=== PATIENT | female | born 1930 | race Caucasian/White ===

== ENCOUNTER 2016-10-09 07:09 | Observation (INO) | payer MEDICARE, BC ==
[~2016-10-09] VITALS: Ht 157.5 cm; Wt 49.8 kg
--- NOTE | ~2016-10-09 | CO ---
Unit #: [id number] #: [id number] Patient: ELMA TIPTON [id number] [facility]. [place], [place] [address] [id number] I MR#: [id number] NAME: ELMA TIPTON ROOM: 573 Age: 86 Sex: F Admission Date: 10/09/2016 : 1930 Attending Physician: Victoriano Montilla M.D. CONSULTATION REPORT REASON FOR CONSULTATION Questionable atrial fibrillation and dizziness. HISTORY OF PRESENT ILLNESS This is an 86-year-old white female with a history of having known about a cath in 2004, nonobstructive CAD. Has an EF of 60% with moderate MR and AR with history of frequent PACs and Mobitz type 2 heart block found back in 2004 on a Holter monitor. She also takes Plavix and on aspirin for TIAs a few years back. She has hypertension and hyperlipidemia. She is active with Dr. Biju Hook. She reports she saw him this past May or June, was doing fine. She said she was doing fine up until last evening. During the night, she got up a couple of times and when she sat on the side of bed, she felt very weak and lightheaded. She says she attempted to try to go to the bathroom where she had to hold onto things, which was highly unusual for her. She says she just continued to feel that way, just very weak and lightheaded. She had 4 bouts of small amounts of diarrhea, which she also said that is unusual. She denies any nausea, vomiting, abdominal pain. She denies any chest pain; pain in her neck, bilateral jaws, shoulders, arms, or elbows. She called her daughter who was just worried about her symptoms and she called EMS and they brought her in for further evaluation and management. According to the patient, EMS did not discuss with her any hypotension or bradycardia that they had seen, no report of that from the staff. The patient does report that she does take her Lopressor. She does take metoprolol at bedtime, and she had taken everything yesterday, all of her medications. As mentioned, she is active with Dr. Biju Hook who she saw this past June and he said everything was stable. In the emergency room, the patient's blood pressure was 168/84, heart rate 70, respirations 16, temperature 97.3, O2 saturation was 99% on room air. Her EKG shows sinus rhythm, has frequent premature atrial complexes. She appears to have borderline first degree AV block. No acute ischemia. Initial cardiac enzymes are negative. Her potassium is 3.9, magnesium 2.1. BUN and creatinine stable. CBC is unremarkable. The patient was started on IV fluids. She has been admitted with dizziness and possibly atrial fibrillation, which was interpreted initially and Cardiology consult to assist with evaluation and management. PAST MEDICAL HISTORY 1. In 2004, per [place] web site, she had a cardiac cath which showed 20% luminal irregularities in the LAD, 40% stenosis in the RCA, 50% to 60% stenosis in the circumflex. 2. In 2013, a 2D echo showed LVEF 60% with moderate mitral regurgitation, Unit #: [id number] #: [id number] Patient: ELMA TIPTON mild tricuspid regurgitation and [id number] aortic regurgitation, mild pulmonic regurgitation. 3. History of frequent premature atrial contractions and history in 2004 of Mobitz type 2 heart block. 4. Questionable paroxysmal atrial fibrillation in the past. 5. History of transient ischemic attacks and mini strokes. He has been on Plavix and aspirin. 6. Degenerative joint disease, kyphosis, and chronic back and neck pain. 7. Hypertension. 8. Hyperlipidemia. 9. Nonsmoker. 10. Active with Dr. Biju Hook. PAST SURGICAL HISTORY 1. Partial hysterectomy. 2. Cataract surgery. HOME MEDICATIONS Boniva 150 mg p.o. monthly, metoprolol 50 mg in the morning and 25 mg at bedtime, atorvastatin 10 mg p.o. daily, Plavix 75 mg daily, lisinopril 30 mg p.o. daily, aspirin 81 mg daily. ALLERGIES No known drug allergies. SOCIAL HISTORY The patient lives in her apartment, ambulates without a cane or walker. She does not drive. Her daughter takes her to her appointments and to the grocery. She has been a lifelong nonsmoker. No alcohol or illicit drug abuse. FAMILY HISTORY Her mother at the age of 75 with a heart attack. Father of complications from Parkinson disease. She has older brother and younger brother, who both had coronary artery bypass grafting and several other siblings who are diabetics. REVIEW OF SYSTEMS See details in HPI. PHYSICAL EXAMINATION GENERAL: Ms. Cano is an 86-year-old white female, in no acute respiratory distress. She is awake, alert, and oriented and she answers all questions appropriately. VITAL SIGNS: Blood pressure currently 170/68, heart rate 60, respirations 18, temperature 97.3, O2 saturations 98% on room. NECK: Trachea midline. No thyromegaly or lymphadenopathy. Normal carotid upstrokes. No jugular venous distention. Heart: S1, S2, irregular to regular rate and rhythm. Soft systolic murmur over aortic region and left sternal border. LUNGS: Diminished, but clear. ABDOMEN: Soft, nontender. EXTREMITIES: Pedal pulses are palpable. No pedal edema. DIAGNOSTIC STUDIES LABORATORY RESULTS: Glucose is 117, BUN 26, creatinine 1.0, eGFR is 50.6. Sodium 142, potassium 3.9, chloride 108, CO2 of 25, calcium is 9.2, magnesium 2.1, total protein 7.1, albumin 4.2, bilirubin total 0.4, AST Unit #: [id number] #: [id number] Patient: ELMA TIPTON 22, ALT 15, alkaline phosphatase is 59. WBCs 6.0, hemoglobin 12.6, hematocrit 38.9, platelets is 221. Initial cardiac enzymes; CK-MB is less than 1.0 and troponin less than 0.05. Urinalysis shows 0.2 urobilinogen, otherwise unremarkable. IMAGING STUDIES: Chest x-ray, preliminary report shows nothing acute. No active disease. CARDIOVASCULAR STUDIES: EKG shows normal sinus rhythm with ventricular rate of 70 beats per minute, frequent premature atrial contractions. She does have a first-degree AV block, left axis deviation, poor R-wave progression. IMPRESSION 1. Dizziness, questionable etiology. 2. Diarrhea. 3. Questionable arrhythmias. 4. Frequent premature atrial contractions. 5. History of premature atrial contractions in the remote past, Mobitz type 2 heart block. 6. Nonobstructive coronary artery disease. Last cardiac cath in 2004. 7. Left ventricular ejection fraction of 50% with moderate mitral regurgitation, moderate aortic regurgitation, and mild pulmonic regurgitation and mild tricuspid regurgitation according to 2D echo of 2013. 8. History of transient ischemic attack and mini strokes, on Plavix and aspirin. 9. Kyphosis and chronic back and neck pain. 10. Hypertension. 11. Hyperlipidemia. 12. Active with Dr. Biju Hook. PLAN 1. Cardiology consult to assist with evaluation and management. 2. Dr. Villagran evaluated the EKG. It shows sinus rhythm with frequent premature atrial contractions. There was no atrial fibrillation at this point. 3. We will obtain a TSH, T3 and T4 and evaluate. 4. Obtain the latest records from Dr. Biju Hook, her cross tie maker from [place], and see if he has done a recent 2D echo. EKG obtained from [facility] shows sinus rhythm with frequent PACs. 5. The patient was given a dose of Antivert and she received normal saline bolus. Questionable etiology of dizziness could maybe possibly from the diarrhea or some dehydration. 6. Continue the patient on the beta-davie for now with parameters and also Plavix, aspirin and lisinopril. So far, her blood pressure is stable. We will monitor and make any changes if needed. 7. The patient will have SCDs for DVT prophylaxis. 8. Orthostatic vital signs b.i.d. and monitor. 9. Further recommendations pending per Dr. Villagran. Thank you very much for allowing us to assist in the care. Dictated by... Julio Correa/demarco Unit #: [id number] #: [id number] Patient: ELMA TIPTON TD: 10/10/2016 07:17 JOB #: [id number] CC: Tomi Sharma M.D. CONSULTATION REPORT Page 1 of 1 X Talya Key APRN CONSULTATION REPORT
--- NOTE | ~2016-10-09 | EKG ---
PATIENT: ELMA TIPTON UNIT #: [id number] Ventricular Rate: 70 BPM Atrial Rate: 70 BPM P-R Interval: 192 ms QRS Duration: 88 ms Q-T Interval: 436 ms QTC Calculation(Bezet): 470 ms P Griffin: 184 degrees Calculated R Griffin: -24 degrees Calculated T Griffin: 55 degrees Diagnosis Line: Normal sinus rhythm with 1st degree A-V block Diagnosis Line: Abnormal ECG Diagnosis Line: When compared with ECG of 09-OCT-2016 08:53, Diagnosis Line: (unconfirmed) Diagnosis Line: No significant change was found Diagnosis Line: Confirmed by DAMIAN BLAS MD ([id number]) on 10/10/2016 Diagnosis Line: 7:26:04 PM INTERPRETING MD: WAN VALIENTE
--- NOTE | ~2016-10-09 | CT71 ---
[facility] A Service of [facility] RADIOLOGY TEXT RESULTS PATIENT: ELMA TIPTON LOCATION: [facility] : 29 UNIT #: [id number] AGE: [address]: Victoriano Montilla MD SEX: F ORDER DR: [id number] [facility] [address] [facility]. [place], [place] [address] [id number] MR#: [id number] #: [id number] NAME: ELMA TIPTON : 1930 SEX: F STUDY DATE/TIME: 10/09/2016 11:37 UNIT: [facility] ROOM: [facility] STUDY DESCRIPTION: CT Head Wo Contrast Attending Physician: Sofiya Milner M.D. Ordering Physician: Mihai Garcia M.D. Primary Care Physician: Primary Care Physician No MEDICAL IMAGING REPORT This report is preliminary unless electronic signature is present EXAM Noncontrast head CT. HISTORY 86-year-old female, weakness and dizziness today, blurred vision, onset today. COMPARISON Head CT 11/20/[address] exam was performed with one or more of the following radiation dose reduction techniques: Automatic exposure control, adjustment of mA and/or kV according to patient size, and iterative reconstruction. Axial noncontrast imaging of the brain demonstrate a focal area of decreased attenuation within the left periventricular white matter compatible with an old infarct. This is unchanged from the 2016 study. No mass, mass effect or midline shift. Probable small left lacunar infarct. Extensive intracranial vascular calcifications are noted, particularly within the vertebral arteries bilaterally. Small left maxillary sinus retention cyst. Mastoids, skull base unremarkable. IMPRESSION 1. No definite acute intracranial abnormality identified. 2. Old left basal ganglia lacunar infarct and left periventricular white matter infarct. 3. Extensive intracranial atherosclerotic change particularly within the vertebral arteries bilaterally. Dictated by.Cristian Sbeastian M.D. [facility] A Service of [facility] RADIOLOGY TEXT RESULTS PATIENT: ELMA TIPTON LOCATION: [facility] 5705-24 : 29 UNIT #: [id number] AGE: [address]: Victoriano Montilla MD SEX: F ORDER DR: THIS IS AN ELECTRONICALLY VERIFIED REPORT Cordell Sebastian M.D. at 10/10/2016 9:02 AM Nitish TD: 10/09/2016 20:21 JOB #: [id number] MEDICAL IMAGING REPORT Page 1 of 1 COPY
--- NOTE | ~2016-10-09 | EKG ---
PATIENT: ELMA TIPTON UNIT #: [id number] Ventricular Rate: 70 BPM Atrial Rate: 74 BPM QRS Duration: 80 ms Q-T Interval: 424 ms QTC Calculation(Bezet): 457 ms Calculated R [place]: -30 degrees Calculated T [place]: 54 degrees Diagnosis Line: Sinus rhythm with frequent PACs Diagnosis Line: Left axis deviation Diagnosis Line: Abnormal ECG Diagnosis Line: When compared with ECG of 08-MAR-2014 09:24, Diagnosis Line: is no longer Diagnosis Line: Confirmed by OMAR HOLDEN MD ([id number]) on Diagnosis Line: 10/10/2016 3:44:59 PM INTERPRETING MD: RICHIE
--- NOTE | ~2016-10-09 | HP ---
Unit #: [id number] #: [id number] Patient: ELMA TIPTON [id number] [address] [address] [id number] E MR#: [id number] NAME: ELMA TIPTON ROOM: Age: 86 Sex: F Admission Date: 10/09/2016 : 1930 Attending Physician: Mihai Garcia M.D. HISTORY AND PHYSICAL CHIEF COMPLAINT Weakness and diarrhea. HISTORY OF PRESENT ILLNESS The patient is an 86-year-old female with a past medical history of hypertension, hyperlipidemia, TIA/CVA, atrial fibrillation, coronary artery disease, dysphagia, anemia, osteoporosis, and chronic back pain, who presented to the emergency department for evaluation of the above. The patient states that she was in her usual state of health until the morning of admission when she felt lightheaded. She states that around 4 a.m. this morning she felt "off balance." She states that she has had issues with intermittent dizziness for several years. She states that it is worse with position changes. She states that she feels "unsteady" on her feet. She also states that her legs are "weak." She denies any fever, no cough or cold symptoms, no chest pain, and no palpitations. She states that she did have left shoulder pain within the past week that lasted for about 24 hours but has resolved. She denies any vomiting or diarrhea. No change in her medications. No urinary symptoms. She denies actually passing out. In the emergency department, initial pulse and blood pressure were 70 and 168/84, respectively. EKG shows atrial fibrillation with a rate of 70 beats per minute. She was given 500 mL of normal saline, as well as 25 mg of Antivert in the emergency department. She is being admitted to [facility] for evaluation and further treatment. PAST MEDICAL HISTORY 1. Admission to [facility] March 06-2013, for acute kidney injury and urinary tract infection. 2. Atrial fibrillation, not on chronic anticoagulation. Per the Discharge Summary from March 11, 2014, the patient has a diagnosis of atrial fibrillation. She is not on chronic anticoagulation. She was seen by Cardiology during that admission, and there was not any adjustment in her medications. Again, per record review, there is an EKG from January 22, 2012, that shows atrial fibrillation with a rate of 71 beats per minute. The patient sees Dr. Hook. 3. History of dysphagia. The patient has refused EGD in the past. 4. Chronic back pain. 5. Hypertension. 6. Hyperlipidemia. 7. History of TIA/CVA. 8. Osteoporosis. 9. Anemia. Unit #: [id number] #: [id number] Patient: ELMA TIPTON 10. Nonobstructive coronary artery disease followed by Dr. Hook. 11. Echocardiogram on March 07, 2014, showed an ejection fraction of 60% with moderate mitral regurgitation, mild tricuspid regurgitation, mild to moderate aortic regurgitation, and mild pulmonic valvular regurgitation. Right ventricular systolic pressure was normal. PAST SURGICAL HISTORY 1. Cardiac catheterization in 2004 (per Cardiology consultation note in March 08) showed 20% luminal irregularities in the LAD, 40% stenosis in the RCA, and 50-60% stenosis in the circumflex. 2. Hysterectomy. 3. Cataract surgery. SOCIAL HISTORY The patient lives alone. She typically walks without assistance. There is no tobacco or alcohol use. Her code status is a Full Code. FAMILY HISTORY Notable for her mother dying of a myocardial infarction at the age of 75. Her dad had Parkinson disease. She has two brothers with coronary artery disease. ALLERGIES No known allergies. HOME MEDICATIONS 1. Boniva 150 mg monthly. 2. Lopressor 50 mg in the morning and 25 mg at bedtime. 3. Atorvastatin 10 mg daily. 4. Plavix 75 mg daily. 5. Zestril 30 mg daily. 6. Aspirin 81 mg daily. REVIEW OF SYSTEMS A complete review of systems is negative except as indicated in the History of Present Illness. The patient denies any change in her medications. PHYSICAL EXAMINATION VITAL SIGNS: Temperature is 97.3, pulse 70, respirations 16, blood pressure 168/84, and oxygen saturation is 99% on room air. GENERAL: Patient is a female who is awake, alert, and in no acute distress. HEENT: Head is atraumatic. Mucous membranes are moist. NECK: Supple. Trachea is midline. CARDIOVASCULAR: Irregular. She does have a 3/6 systolic ejection murmur. LUNGS: Clear to auscultation bilaterally with no increased work of breathing. ABDOMEN: Soft and nontender with bowel sounds present in all four quadrants. EXTREMITIES: Nontender with no pedal edema. NEUROLOGIC: Patient is awake and alert. She follows commands. PSYCHIATRIC: Mood and affect are normal. Patient is cooperative. SKIN: Skin of examined areas is warm and dry. DIAGNOSTIC STUDIES LABORATORY: Complete blood count is notable for MCV of 96.6. Comprehensive metabolic panel notable for a glucose of 117 and BUN and Unit #: [id number] #: [id number] Patient: ELMA TIPTON creatinine 26 and 1, respectively. Urinalysis essentially negative. Magnesium is 2.1. Troponin is less than 0.05. IMAGING: CT of the head shows nothing acute. There is an old left basal ganglia infarct. CARDIOLOGY: EKG shows atrial fibrillation with a rate of 70 beats per minute. ASSESSMENT The patient is an 86-year-old female with: 1. Lightheadedness. 2. Atrial fibrillation. The patient has had atrial fibrillation in the past. She is not on chronic anticoagulation. She is currently rate controlled. She is on metoprolol. 3. Hypertension. 4. Hyperlipidemia. 5. History of transient ischemic attack/cerebrovascular accident. 6. Coronary artery disease, nonobstructive, followed by Dr. Hook. 7. History of dysphagia. The patient has refused EGD in the past. 8. Anemia. 9. Osteoporosis. 10. Chronic back pain. PLAN 1. Admit for observation to intermediate level. 2. Healthy heart diet if passes bedside swallow. 3. Normal saline at 75 mL/hour. 4. Fall precautions. 5. Bedrest. 6. Orthostatics every shift. 7. Hold metoprolol pending Cardiology recommendations. 8. TSH. 9. A 2D echo if not done within the past year. 10. Serial cardiac enzymes. 11. Consult Dr. Villatoro regarding atrial fibrillation and lightheadedness. 12. Repeat labs in the morning including INR. 13. SCDs for DVT prophylaxis. 14. Additional workup and consultants based on above. 1. Dictated by Tomi Zamudio/kyra TD: 10/09/2016 15:23 JOB #: [id number] Unit #: [id number] #: [id number] Patient: ELMA TIPTON HISTORY AND PHYSICAL Page 1 of 1 X Sofiya Milner MD HISTORY AND PHYSICAL
--- NOTE | ~2016-10-09 | CR72 ---
[facility] A Service of [facility] RADIOLOGY TEXT RESULTS PATIENT: ELMA TIPTON LOCATION: [facility] [place] [facility] 573-01 : 29 UNIT #: [id number] AGE: [address]: Victoriano Montilla MD SEX: F ORDER DR: [id number] [facility] [address] [facility] [place], [place] [address] [id number] I MR#: [id number] Acc #: [id number] NAME: ELMA TIPTON : 1930 SEX: F STUDY DATE/TIME: 10/09/2016 12:46 UNIT: [facility] [place] [facility] ROOM: [facility] STUDY DESCRIPTION: CR Chest Single View Portable Attending Physician: Sofiya Milner M.D. Ordering Physician: Mihai Garcia M.D. Primary Care Physician: Primary Care Physician No MEDICAL IMAGING REPORT This report is preliminary unless electronic signature is present EXAM Chest portable, 10/09/2016 1246 hours HISTORY 86-year-old with weakness and diarrhea today. History of hypertension and leaky heart valve. COMPARISON 03/06/2014 FINDINGS Single portable upright chest demonstrates normal cardiac, mediastinal and hilar contours. Atherosclerotic calcifications of the aortic arch unchanged. There are no acute pulmonary densities or pleural effusions. No free air seen in the abdomen. IMPRESSION No acute cardiopulmonary findings. No free air seen in the abdomen. Dictated by... Martha Perry M.D. THIS IS AN ELECTRONICALLY VERIFIED REPORT Martha Perry M.D. at 10/10/2016 9:11 AM MINI/ydoit TD: 10/10/2016 02:13 JOB #: [id number] MEDICAL IMAGING REPORT Page 1 of 1 COPY
--- NOTE | ~2016-10-09 | DS ---
Unit #: [id number] #: [id number] Patient: ELMA TIPTON [id number] [place], [place] [address] [id number] MR#: [id number] NAME: ELMA TIPTON ROOM: 57 Age: 86 Sex: F Admission Date: 10/09/2016 : 1930 Discharge Date: 10/10/2016 Attending Physician: Victoriano Montilla M.D. Primary Care Physician: No Primary Care Physician DISCHARGE SUMMARY DIAGNOSIS ON ADMISSION Lightheadedness. DIAGNOSES ON DISCHARGE 1. Dizziness, improved. 2. Anxiety, improved. 3. History of chronic atrial fibrillation. 4. Dysphagia. 5. Chronic low back pain. 6. Hypertension. 7. Hyperlipidemia. 8. History of transient ischemic attack. 9. Osteoporosis. 10. Anemia. 11. Nonobstructive coronary artery disease. CONSULTATIONS Dr. Villatoro and group in cardiac consultation. LABS AND PROCEDURES DONE The patient's creatinine is 0.9, sodium 142, potassium 3.6. WBC 6.6, hemoglobin 11.5. Platelet count is 207. Chest x-ray did not reveal any acute cardiopulmonary disease. CT scan of head revealed no definite acute intracranial abnormality. There was old left basal ganglia lacunar infarct and white matter infarct. Troponin was less than 0.03. The patient's TSH level was 2.04. Magnesium level was 2.1. HOSPITAL COURSE 86-year-old female was admitted to [facility] with dizziness. Details are as per admission H and P. The patient was seen by Dr. Villatoro in consultation. The patient was recently admitted at [facility] in June 2016, and had a 2D echocardiogram done which had revealed ejection fraction of 64%. The patient did not have any more dizzy spells since admission. Her carotid sinus massage did not cause any bradycardia. Patient's dose of metoprolol was decreased to 12.5 mg p.o. daily and she was DC'd home to follow up on outpatient basis. The Unit #: [id number] #: [id number] Patient: ELMA TIPTON patient's dose of metoprolol was decreased to 12.5 mg p.o. b.i.d. because of possible bradycardia because of her recurrent episodes of dizziness. The patient was advised to follow with Dr. Hook in two to three weeks. Today, patient is comfortable, is not in any acute distress. On physical examination vital signs reveal temperature of 97.9, pulse is 72/minute, respiratory rate is 16/minute, blood pressure is 153/69. HEENT: No conjunctival congestion. Sclerae is not icteric. NECK: Supple. Trachea is central. RESPIRATORY: Decreased breath sounds bilaterally. There are no wheezes or crackles. HEART: Regular rate and rhythm. S1, S2. ABDOMEN: Soft, nontender. Bowel sounds are present in all four quadrants. NEUROLOGICAL: The patient is alert to person, place and time. Power is 5 out of 5 bilaterally. Sensations are grossly intact. SKIN: Warm and dry. RECOMMENDATIONS ON DISCHARGE Condition is stable. Activity as tolerated. MEDICATIONS 1. Lopressor 12.5 mg p.o. b.i.d. 2. Lipitor 10 mg p.o. q. h.s. 3. Lisinopril 30 mg p.o. daily. 4. Boniva 150 mg q. monthly. 5. Enteric coated aspirin 81 mg p.o. daily. 6. Plavix 75 mg p.o. daily. Please make note that patient states that her diarrhea has resolved. FOLLOWUP 1. The patient was advised to follow up with primary care physician in one week and have a CBC and BMP done. 2. The patient was advised to follow up with Dr. Hook in two to three weeks. 3. We will arrange home health regarding PT, OT and nursing. I called and discussed with patient's daughter, Bri, and informed her about discharge plan. Dictated by... Tomi Chao/antonio TD: 10/10/2016 13:22 JOB #: [id number] CC: Eduin Hook M.D. Unit #: [id number] #: [id number] Patient: ELMA TIPTON DISCHARGE SUMMARY Page 1 of 1 X Victoriano Montilla MD DISCHARGE SUMMARY
[~2016-10-09 07:09] MED LIST: AMBIEN10 MG PO; ANTIVERT12.5 MG PO; ASPIRINEC PO; BONIVA150 MG PO; CALCIUM 500 + D1 TAB PO; CALTRATE PLUS T1 TAB PO; CIPRO PO; DYAZIDE 37.5/251 CAP PO; DYAZIDE 371 CAP 37.5 DOB; FISH OIL 1,0001 CAP PO; FOSAMAX PO; FOSINOPRIL PO; LIPITOR PO; LOMOTIL TABLET1 TAB; LOPRESSOR PO; LOW DOSE ASPIRI81 M2 PO; MEGACE PO; MULTI-VIT/MIN P1 TAB PO; OMEGA-31000 M1 PO; PLAVIX PO; VICODIN 5/1 TAB 5/50 PO; ZOCOR PO; ZOFRAN PO
[2016-10-09 07:38] LABS: BASOPHIL% 0.5 % (0-2.5); EOSINOPHIL# 0.1 X10e3 (0-0.7); HEMATOCRIT 38.9 % (35.0-45.0); HEMOGLOBIN 12.6 gm/dL (12.0-16.0); LYMPHOCYTE# 0.8 X10e3 (1.0-3.5); LYMPHOCYTE% 13.5 % (17.0-45.0); MEAN CELL VOLUME 96.6 FL (83-96); MEAN CORPUSCULAR HEMOGLOBIN 31.3 PG (28-34); MEAN CORPUSCULAR HGB CONC 32.4 g/dL (30-36); MONOCYTE# 0.5 X10e3 (0-1.0); MONOCYTE% 7.8 % (3.0-12.0); NEUTROPHIL# 4.6 X10e3 (1.5-7.1); NEUTROPHIL% 77.2 % (40-75); PLATELET COUNT 221 X10e3 (140-420); RED BLOOD COUNT 4.03 X10e (3.90-5.30); RED CELL DISTRIBUTION WIDTH 13.4 % (11.0-15.5)
[2016-10-09 07:40] LABS: DIFF IND NO
[2016-10-09 08:08] LABS: ALBUMIN SERUM 4.2 g/dL (3.5-5.0); ALKALINE PHOSPHATASE 59 U/L (32-92); ALT (SGPT) 15 U/L (10-40); AST (SGOT) 22 U/L (10-42); BILIRUBIN,TOTAL 0.4 mg/dL (0.2-2.0); BLOOD UREA NITROGEN 26 mg/dL (9-23); CALCIUM SERUM 9.2 mg/dL (8.4-10.2); CARBON DIOXIDE 25 mmol/L (22-31); CHLORIDE 108 mmol/L (100-111); GLOM FILT RATE Estimated 50.6 mL/min (>60); GLUCOSE FASTING 117 mg/dL (70-110); POTASSIUM 3.9 mmol/L (3.5-5.1); PROTEIN TOTAL SERUM 7.1 g/dL (6.0-8.3); SODIUM 142 mmol/L (135-145)
[2016-10-09 08:11] LABS: BILIRUBIN, DIRECT <0.1 mg/dL (0.0-0.2); BILIRUBIN,INDIRECT 0.3 mg/dL (0.0-0.9)
[2016-10-09 09:17] LABS: URINE SOURCE CLEAN CATCH
[2016-10-09 09:23] LABS: URINE APPEARANCE CLEAR; URINE BILIRUBIN NEG (NEG); URINE BLOOD TRACE (NEG); URINE COLOR YELLOW; URINE GLUCOSE NEG (NEG); URINE KETONE NEG (NEG); URINE LEUKOCYTE ESTERASE NEG (NEG); URINE NITRATE NEG (NEG); URINE PH 6.5 (5-8); URINE PROTEIN NEG (NEG); URINE SPECIFIC GRAVITY 1.011 (1.003-1.035); URINE UROBILINOGEN 0.2 MG/DL (NEG)
[2016-10-09 09:25] LABS: URBCS1 AUWI 0-2 /[HPF] (0-2); URINE BACTERIA AUWI NEG (NEGATIVE); URINE SQUAMOUS EPITHELIAL CELL NONE SEEN /[HPF]; UWBCS1 AUWI 0-2 (0-5)
[2016-10-09 09:30] LABS: CULTURE INDICATED? NO
[2016-10-09] MEDS ORDERED: LOPRESSOR PO ×2 (10:24→10:25)
[2016-10-09] MEDS ORDERED: ATORVASTATIN CA10 MG PO (10:25)
[2016-10-09] MEDS ORDERED: CLOPIDOGREL75 MG PO (10:25)
[2016-10-09] MEDS ORDERED: ASPIRIN81 M2 PO (10:26)
[2016-10-09] MEDS ORDERED: LISINOPRIL PO (10:26)
[2016-10-09 10:41] LABS: POC - CKMB <1.0 ng/mL (0.0-7.9); POC - TROPONIN <0.05 ng/mL (<=0.05)
[2016-10-09 15:37] LABS: %MB 2.5 % (0.0-4.0); MB 1.7 ng/ml
[2016-10-09 18:54] LABS: FREE T3 2.9 pg/mL (2.5-3.9)
[2016-10-09 18:56] LABS: FREE THYROXIN (T4) 0.88 ng/dL (0.58-1.64)
[2016-10-09 21:57] LABS: %MB 2.5 % (0.0-4.0); MB 1.9 ng/ml
[2016-10-10 05:36] LABS: HEMATOCRIT 35.2 % (35.0-45.0); HEMOGLOBIN 11.5 gm/dL (12.0-16.0); MEAN CELL VOLUME 97.2 FL (83-96); MEAN CORPUSCULAR HEMOGLOBIN 31.7 PG (28-34); MEAN CORPUSCULAR HGB CONC 32.6 g/dL (30-36); MEAN PLATELET VOLUME 9.4 FL (6.5-11.5); RED BLOOD COUNT 3.63 X10e (3.90-5.30); RED CELL DISTRIBUTION WIDTH 13.1 % (11.0-15.5); WHITE BLOOD COUNT 6.6 X10e3 (4.0-10.5)
[2016-10-10 05:50] LABS: PROTHROMBIN TIME (PATIENT) 10.9 SECONDS (10.0-11.7)
[2016-10-10 06:43] LABS: ALBUMIN SERUM 3.4 g/dL (3.5-5.0); BILIRUBIN,TOTAL 0.4 mg/dL (0.2-2.0); BUN/CREATININE RATIO 27.77; CALCIUM SERUM 8.3 mg/dL (8.4-10.2); CREATININE SERUM 0.9 mg/dL (0.6-1.4); GLOM FILT RATE Estimated 57.5 mL/min (>60); POTASSIUM 3.6 mmol/L (3.5-5.1); PROTEIN TOTAL SERUM 5.9 g/dL (6.0-8.3)
== END 2016-10-10 13:47 | disposition home or self-care (01) ==
LOC: CED 07:09 → CEDOF 13:25 → CED 16:41 → CEDOF 16:41 → C5C 17:38
PROVIDERS: Emergency Medicine; Family Medicine; Internal Medicine Cardiovascular Disease
DX: R42 Dizziness and giddiness (principal); F41.9 Anxiety disorder, unspecified; R13.10 Dysphagia, unspecified; I48.2 Chronic atrial fibrillation; I10 Essential (primary) hypertension; E78.5 Hyperlipidemia, unspecified; Z86.73 Personal history of transient ischemic attack (TIA), and cerebral infarction without residual deficits; I25.10 Atherosclerotic heart disease of native coronary artery without angina pectoris; M81.0 Age-related osteoporosis without current pathological fracture; D64.9 Anemia, unspecified; Z79.82 Long term (current) use of aspirin; Z79.899 Other long term (current) drug therapy
CPT/HCPCS: 36415; 51701; 70450; 71010; 80048; 80053; 80076; 81003; 82550; 82553; 82947; 83735; 84439; 84443; 84481; 84484; 85025; 85027; 85610; 93005; 96360; 99285; G0378